=== PATIENT | female | born 1990 | race Caucasian/White ===

== ENCOUNTER → 2020-06-04 | Outpatient (CLI) | payer OTHER | END | disposition home or self-care (01) | LOC: CFH 14:11 | PROVIDERS: ATTEND Obstetrics & Gynecology | DX: Z12.31 Encounter for screening mammogram for malignant neoplasm of breast (principal); Z80.3 Family history of malignant neoplasm of breast | CPT/HCPCS: 76641; 77063; 77067 ==

== ENCOUNTER → 2020-09-25 | Outpatient (CLI) | payer OTHER | END | disposition home or self-care (01) | LOC: STAR 14:34 | PROVIDERS: ATTEND Orthopaedic Surgery | DX: Z20.828 Contact with and (suspected) exposure to other viral communicable diseases (principal); M25.512 Pain in left shoulder | CPT/HCPCS: U0003 ==

== ENCOUNTER 2020-09-30 08:36 | Day surgery (SDC) | payer OTHER ==
[~2020-09-30] VITALS: Ht 172.7 cm; Wt 69.2 kg
[2020-09-30 09:41] LABS: HCG UR SG 1.024 (1.003-1.030)
[2020-09-30] MEDS ORDERED: MIDAZOLAM 1 MG/ML, 2ML ONE (09:44)
[2020-09-30 09:45] VITALS: BP 127/89
[2020-09-30] MEDS ORDERED: FENTANYL PF 100 MCG/2ML ONE (09:45)
[2020-09-30] MEDS ORDERED: LACTATED RINGERS 1,000 ML IV SCH (10:00)
[2020-09-30] MEDS ORDERED: CHLORHEXIDINE 15 ML UDC MM ONE (10:00)
[2020-09-30] MEDS ORDERED: EPINEPHRINE 1 MG/ML, 1ML ONE (10:12)
[2020-09-30] MEDS ORDERED: DEXAMETHASONE 4 MG/ML, 1ML ONE (10:37)
[2020-09-30] MEDS ORDERED: ROCURONIUM 10MG/ML,5ML ONE (10:37)
[2020-09-30] MEDS ORDERED: PROPOFOL 50 ML ONE (11:00)
[2020-09-30] MEDS ORDERED: MIDAZOLAM 1 MG/ML, 2ML IV PRN (11:30)
[2020-09-30] MEDS ORDERED: PROMETHAZINE 25 MG/ML, 1ML IVPush PRN (11:30)
[2020-09-30] MEDS ORDERED: ALBUTEROL SULFATE 2.5 MG/3 ML NPPB PRN (11:30)
[2020-09-30] MEDS ORDERED: OXYcodone 5 MG/5 ML ORAL.SOL UDC PO PRN (11:30)
[2020-09-30] MEDS ORDERED: MEPERIDINE/PF 25MG/0.5ML IVPush PRN (11:30)
[2020-09-30] MEDS ORDERED: LABETALOL 5MG/ML, 20ML IV PRN (11:30)
[2020-09-30] MEDS ORDERED: ACETAMINOPHEN 325 MG TABLET PO PRN (11:30)
[2020-09-30] MEDS ORDERED: hydrALAzine 20 MG/ML, 1ML IV PRN (11:30)
[2020-09-30] MEDS ORDERED: FENTANYL PF 100 MCG/2ML IV PRN (11:30)
[2020-09-30] MEDS ORDERED: ONDANSETRON 2MG/ML, 2ML ONE (11:33)
[2020-09-30] MEDS ORDERED: BUPIVACAINE/PF 0.5% ONE (11:33)
[2020-09-30] MEDS ORDERED: CEFAZOLIN 1,000 MG ONE (11:33)
[2020-09-30] MEDS ORDERED: PROPOFOL 10 MG/ML, 20ML ONE (11:33)
[2020-09-30] MEDS ORDERED: KETOROLAC 30 MG/1 ML ONE (11:33)
[2020-09-30] MEDS ORDERED: LIDOCAINE-MPF 2% ,5ML ONE (11:33)
[2020-09-30] MEDS ORDERED: ACETAMINOPHEN 650 MG/20.3 ML UDC ONE (12:15)
[2020-09-30] MEDS ORDERED: OXYcodone 5 MG/5 ML ORAL.SOL UDC ONE (12:15)
[2020-09-30] MEDS ORDERED: PROMETHAZINE 25 MG/ML, 1ML ONE (12:20)
== END 2020-09-30 14:15 | disposition home or self-care (01) ==
LOC: OUT 08:36
PROVIDERS: ATTEND Orthopaedic Surgery
DX: M65.812 Other synovitis and tenosynovitis, left shoulder (principal); M75.02 Adhesive capsulitis of left shoulder; Z91.011 Allergy to milk products; Z91.018 Allergy to other foods; Z72.89 Other problems related to lifestyle
CPT/HCPCS: 29823; 29826; 64415; 81025; J0171; J0690; J1100; J1885; J2250; J2405; J2550; J2704; J3010; J7120